=== PATIENT | female | born 2005 | race Caucasian/White ===

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

== ENCOUNTER 2023-01-04 06:53 | Emergency (ER) | payer OTHER ==
[~2023-01-04] VITALS: Wt 117.9 kg
[~2023-01-04 06:53] MED LIST changes: +CIPRO500 MG PO; +ONDANSETRON4 MG SL
[2023-01-04 07:39] LABS: BASO % 0.3 % (0.0-1.0); EOS # 0.9 10*3/uL (0.0-0.4); EOS % 8.1 % (1.0-4.0); HEMATOCRIT 36.5 % (37.0-47.0); LYMPH # 2.1 10*3/uL (1.3-4.4); LYMPH % 18.5 % (27.0-41.0); MEAN CORPUSCULAR HGB 27.4 pg (27.0-31.0); MEAN CORPUSCULAR HGB CONC 34.2 g/dl (33.0-37.0); MEAN PLATELET VOLUME 8.5 fl (9.6-12.3); MONO # 0.5 10*3/uL (0.1-1.0); MONO % 4.7 % (3.0-9.0); NEUT # 7.9 10*3/uL (2.3-7.9); NEUT % 68.1 % (47.0-73.0); PLATELET COUNT AUTOMATED 359 10*3/uL (130-400); RED BLOOD COUNT 4.56 10*6/uL (4.10-5.10); RED CELL DISTRI WIDTH 13.2 % (0-14.5); WHITE BLOOD COUNT 11.5 10*3/uL (4.8-10.8)
[2023-01-04 08:15] LABS: ALKALINE PHOSPHATASE 71 U/L (46-116); BUN < 5 mg/dl (9-23); CHLORIDE 105 mmol/L (98-107); POTASSIUM 3.7 mmol/L (3.4-5.1); SGPT/ALT 11 U/L (10-49); TOTAL PROTEIN 6.9 gm/dL (6.0-8.0)
[2023-01-04 09:43] LABS: BILIRUBIN Negative (Negative); BLOOD Negative (Negative); CLARITY Clear (Clear); COLOR Yellow (Yellow); GLUCOSE Negative (Negative); KETONE 1+ (Negative); LEUKO ESTERASE Trace (Negative); NITRITE Negative (Negative); PH 6.5 (4.5-8.0)
[2023-01-04 09:52] LABS: BACTERIA 4+; EPITHELIAL CELLS TNTC
[2023-01-04] MEDS ORDERED: CEPHALEXIN500 M1 PO (10:58)
== END 2023-01-04 11:00 | disposition home or self-care (01) ==
LOC: ED 06:53
PROVIDERS: Internal Medicine
DX: O26.892 Other specified pregnancy related conditions, second trimester (principal); O99.612 Diseases of the digestive system complicating pregnancy, second trimester; R10.9 Unspecified abdominal pain; K21.9 Gastro-esophageal reflux disease without esophagitis; Z3A.17 17 weeks gestation of pregnancy

== ENCOUNTER 2023-03-10 15:35 | Emergency (ER) | payer OTHER ==
[~2023-03-10] VITALS: Wt 118.8 kg
[~2023-03-10 15:35] MED LIST changes: +CEPHALEXIN500 M1 PO
[2023-03-10 16:51] LABS: BASO # 0.1 10*3/uL (0.0-0.1); BASO % 0.3 % (0.0-1.0); EOS # 0.5 10*3/uL (0.0-0.4); EOS % 3.5 % (1.0-4.0); HEMATOCRIT 38.3 % (37.0-47.0); LYMPH # 1.9 10*3/uL (1.3-4.4); LYMPH % 13.1 % (27.0-41.0); MEAN CELL VOLUME 83.3 fl (81.0-99.0); MEAN CORPUSCULAR HGB 27.6 pg (27.0-31.0); MEAN CORPUSCULAR HGB CONC 33.2 g/dl (33.0-37.0); MEAN PLATELET VOLUME 8.7 fl (9.6-12.3); MONO # 0.6 10*3/uL (0.1-1.0); NEUT # 11.3 10*3/uL (2.3-7.9); NEUT % 78.8 % (47.0-73.0); PLATELET COUNT AUTOMATED 436 10*3/uL (130-400); RED CELL DISTRI WIDTH 12.8 % (0-14.5); WHITE BLOOD COUNT 14.4 10*3/uL (4.8-10.8)
[2023-03-10 17:06] LABS: ALKALINE PHOSPHATASE 91 U/L (46-116); BUN < 5 mg/dl (9-23); CHLORIDE 107 mmol/L (98-107); SGPT/ALT 10 U/L (10-49); TOTAL PROTEIN 6.7 gm/dL (6.0-8.0)
[2023-03-10 17:33] LABS: BILIRUBIN Negative (Negative); BLOOD Negative (Negative); CLARITY Cloudy (Clear); COLOR Dark Yellow (Yellow); GLUCOSE Negative (Negative); KETONE Trace (Negative); LEUKO ESTERASE 1+ (Negative); NITRITE Negative (Negative); SPECIFIC GRAVITY 1.025 (1.001-1.030)
[2023-03-10 17:44] LABS: BACTERIA 1+; EPITHELIAL CELLS 21-30; MUCOUS 1+
== END 2023-03-10 18:55 | disposition home or self-care (01) ==
LOC: ED 15:35
PROVIDERS: Student in an Organized Health Care Education/Training Program
DX: O26.892 Other specified pregnancy related conditions, second trimester (principal); R42 Dizziness and giddiness; R11.0 Nausea; Z3A.25 25 weeks gestation of pregnancy

== ENCOUNTER 2023-10-17 06:35 | Emergency (ER) | payer OTHER ==
[2023-10-17 07:03] LABS: BASO # 0.1 10*3/uL (0.0-0.1); BASO % 0.6 % (0.0-1.0); EOS # 0.7 10*3/uL (0.0-0.4); EOS % 6.8 % (1.0-4.0); HEMATOCRIT 34.3 % (37.0-47.0); LYMPH # 3.1 10*3/uL (1.3-4.4); LYMPH % 30.1 % (27.0-41.0); MEAN CELL VOLUME 73.8 fl (81.0-99.0); MEAN CORPUSCULAR HGB 23.4 pg (27.0-31.0); MEAN CORPUSCULAR HGB CONC 31.8 g/dl (33.0-37.0); MEAN PLATELET VOLUME 8.3 fl (9.6-12.3); MONO # 0.6 10*3/uL (0.1-1.0); MONO % 5.8 % (3.0-9.0); NEUT # 5.8 10*3/uL (2.3-7.9); NEUT % 56.6 % (47.0-73.0); PLATELET COUNT AUTOMATED 393 10*3/uL (130-400); RED BLOOD COUNT 4.65 10*6/uL (4.10-5.10); WHITE BLOOD COUNT 10.3 10*3/uL (4.8-10.8)
[2023-10-17 07:31] LABS: ALKALINE PHOSPHATASE 99 U/L (46-116); BUN 15 mg/dl (9-23); CHLORIDE 107 mmol/L (98-107); LIPASE 26 U/L (12-53); POTASSIUM 3.8 mmol/L (3.4-5.1); SGPT/ALT 37 U/L (5-49); TOTAL PROTEIN 7.2 gm/dL (6.0-8.0)
[2023-10-17] MEDS ORDERED: FAMOTIDINE40 MG PO (08:14)
== END 2023-10-17 08:28 | disposition home or self-care (01) ==
LOC: ED 06:35
PROVIDERS: Internal Medicine
DX: K21.9 Gastro-esophageal reflux disease without esophagitis (principal); F90.9 Attention-deficit hyperactivity disorder, unspecified type; Z98.890 Other specified postprocedural states

== ENCOUNTER 2023-10-17 12:03 | Emergency (ER) | payer OTHER ==
[~2023-10-17] VITALS: Ht 162.5 cm; Wt 118.8 kg
[~2023-10-17 12:03] MED LIST changes: +FAMOTIDINE40 MG PO
== END 2023-10-17 15:18 | disposition left against medical advice (07) ==
LOC: ED 12:03
DX: R10.9 Unspecified abdominal pain (principal); Z53.21 Procedure and treatment not carried out due to patient leaving prior to being seen by health care provider

== ENCOUNTER → 2023-11-10 | Outpatient (CLI) | payer OTHER | END | disposition home or self-care (01) | LOC: US 11-02 09:00 | PROVIDERS: ATTEND Nurse Practitioner Family | DX: K80.20 Calculus of gallbladder without cholecystitis without obstruction (principal); R10.11 Right upper quadrant pain ==

== ENCOUNTER 2024-01-18 23:06 | Emergency (ER) | payer OTHER ==
[~2024-01-18] VITALS: Ht 165.1 cm; Wt 115.7 kg
== END 2024-01-19 03:15 | disposition home or self-care (01) ==
LOC: ED 23:06
DX: S96.911A Strain of unspecified muscle and tendon at ankle and foot level, right foot, initial encounter (principal); K21.9 Gastro-esophageal reflux disease without esophagitis; F90.9 Attention-deficit hyperactivity disorder, unspecified type; Z98.890 Other specified postprocedural states; X50.1XXA Overexertion from prolonged static or awkward postures, initial encounter; Y93.89 Activity, other specified; Y92.89 Other specified places as the place of occurrence of the external cause; Y99.8 Other external cause status

== ENCOUNTER 2024-05-15 23:25 | Emergency (ER) | payer OTHER ==
[~2024-05-15] VITALS: Ht 172.7 cm; Wt 122.5 kg
[2024-05-16] MEDS ORDERED: Ketorolac Tromethamine 60 MG/2 ML VIAL IM ONE (01:55)
[2024-05-16] MEDS ORDERED: NAPROXEN250 MG PO (01:58)
== END 2024-05-16 02:10 | disposition home or self-care (01) ==
LOC: ED 23:25
DX: S93.401A Sprain of unspecified ligament of right ankle, initial encounter (principal); K21.9 Gastro-esophageal reflux disease without esophagitis; F90.9 Attention-deficit hyperactivity disorder, unspecified type; Z98.890 Other specified postprocedural states; X50.1XXA Overexertion from prolonged static or awkward postures, initial encounter; Y93.89 Activity, other specified; Y92.009 Unspecified place in unspecified non-institutional (private) residence as the place of occurrence of the external cause; Y99.8 Other external cause status

== ENCOUNTER 2024-12-12 23:24 | Emergency (ER) | payer OTHER ==
[~2024-12-12] VITALS: Ht 165.1 cm; Wt 129.3 kg
[~2024-12-12 23:24] MED LIST changes: +NAPROXEN250 MG PO
== END 2024-12-13 00:32 | disposition home or self-care (01) ==
LOC: ED 23:24
DX: J10.1 Influenza due to other identified influenza virus with other respiratory manifestations (principal); K21.9 Gastro-esophageal reflux disease without esophagitis; F90.9 Attention-deficit hyperactivity disorder, unspecified type; Z98.890 Other specified postprocedural states

== ENCOUNTER 2025-01-25 09:20 | Emergency (ER) | payer OTHER ==
[~2025-01-25] VITALS: Wt 129.3 kg
[2025-01-25] MEDS ORDERED: Ketorolac Tromethamine 30 MG/ML VIAL IM ONE (10:10)
[2025-01-25] MEDS ORDERED: MELOXICAM15 MG PO (10:12)
[2025-01-25] MEDS ORDERED: AMOX-CLAV 875-1 EACH PO (10:12)
== END 2025-01-25 10:47 | disposition home or self-care (01) ==
LOC: ED 09:20
DX: K04.7 Periapical abscess without sinus (principal); Z96.22 Myringotomy tube(s) status

== ENCOUNTER 2025-05-27 22:15 | Emergency (ER) | payer OTHER ==
[~2025-05-27] VITALS: Ht 165.1 cm; Wt 131.5 kg
[~2025-05-27 22:15] MED LIST changes: +AMOX-CLAV 875-1 EACH PO; +MELOXICAM15 MG PO
[2025-05-28] MEDS ORDERED: PREDNISONE20 M1 PO (00:27)
[2025-05-28] MEDS ORDERED: Water, Sterile 10 ML VIAL ONE (00:48)
== END 2025-05-28 00:45 | disposition home or self-care (01) ==
LOC: ED 22:15
DX: B34.9 Viral infection, unspecified (principal); Z20.822 Contact with and (suspected) exposure to COVID-19; H92.09 Otalgia, unspecified ear; Z96.22 Myringotomy tube(s) status

== ENCOUNTER 2025-07-18 22:11 | Emergency (ER) | payer OTHER ==
[~2025-07-18] VITALS: Ht 162.5 cm; Wt 127.0 kg
[~2025-07-18 22:11] MED LIST changes: +PREDNISONE20 M1 PO
[2025-07-18] MEDS ORDERED: Ondansetron Hydrochloride 4 MG/2 ML VIAL IV ONE (22:40)
[2025-07-18] MEDS ORDERED: SODIUM CHLORIDE 0.9% 1,000 ML IV ONE (22:40)
[2025-07-19] MEDS ORDERED: Ondansetron4 MG PO (02:15)
== END 2025-07-19 02:37 | disposition home or self-care (01) ==
LOC: ED 22:11
DX: B34.9 Viral infection, unspecified (principal); R11.2 Nausea with vomiting, unspecified; Z79.899 Other long term (current) drug therapy; Z96.22 Myringotomy tube(s) status

== ENCOUNTER 2025-08-15 13:21 | Emergency (ER) | payer OTHER ==
[~2025-08-15] VITALS: Ht 165.1 cm; Wt 127.0 kg
[~2025-08-15 13:21] MED LIST changes: +Ondansetron4 MG PO
== END 2025-08-15 14:46 | disposition home or self-care (01) ==
LOC: ED 13:21
DX: S93.401A Sprain of unspecified ligament of right ankle, initial encounter (principal); K21.9 Gastro-esophageal reflux disease without esophagitis; F90.9 Attention-deficit hyperactivity disorder, unspecified type; X50.0XXA Overexertion from strenuous movement or load, initial encounter; Y93.89 Activity, other specified; Y92.89 Other specified places as the place of occurrence of the external cause; Y99.8 Other external cause status